=== PATIENT | female | born 1990 | race Two or more races ===

== ENCOUNTER 2016-08-13 00:06 | Emergency (ER) | payer SELFPAY ==
[~2016-08-13] VITALS: Ht 165.1 cm; Wt 65.8 kg
[2016-08-13 01:53] VITALS: BP 124/81
[2016-08-13] MEDS ORDERED: LORazepam 0.5 MG TAB PO ONE (02:00)
== END 2016-08-13 02:09 | disposition home or self-care (01) ==
LOC: ER 00:13
DX: F41.9 Anxiety disorder, unspecified (principal); F32.9 Major depressive disorder, single episode, unspecified